=== PATIENT | male | born 1935 | race Caucasian/White ===

== ENCOUNTER 2016-10-07 19:20 | Inpatient (IN) | payer OTHER ==
--- NOTE | 2016-10-07 19:39 | EDPHY ---
H & P Time Seen by Provider: 10/07/16 19:26 HPI/ROS: CHIEF COMPLAINT: General weakness for 4 months HISTORY OF PRESENT ILLNESS: Patient has been weak for the last for 5 months and per daughter and has basically not gotten out of bed during that entire time. Weakness is generalized and the essentially can't care for him any more at home. Weakness severe, nonfocal. A little bit worse in the legs. Not associated with fever chills or headache or any recent fall injury or trauma. Normal oral intake. REVIEW OF SYSTEMS: Eye: no change in vision ENT: no sore throat, feels "congested" Cardiac: no chest pain or syncope Pulmonary: no cough or SOB Abdomen: no vomiting, diarrhea, abdominal pain Musculoskeletal: Bilateral leg swelling. Skin: no rash Neuro: no headache Constitutional: no fever : no urinary symptoms Patient's own notes document taking a significant amount of acetaminophen. A comprehensive 10 point review of systems is otherwise negative aside from elements mentioned in the history of present illness. PAST MEDICAL HISTORY: Discharge summary dated 07/01/2015 personally reviewed. Includes left inguinal hernia, Parkinson's, atrial fibrillation with biventricular pacemaker, coronary artery disease with stenting in April of 2015 , hypertension, gout, peripheral neuropathy, prostate cancer. Social history: Occasional alcohol with cognac recently, nonsmoker. Here with daughter and . General Appearance: Alert and conversant, cooperative. Eyes: No scleral icterus. ENT, Mouth: Slightly dry mucous membranes. Respiratory: Basilar crackles but normal respiratory effort and no wheezing or rhonchi. Cardiovascular: Distant heart sounds, irregular without murmur. Gastrointestinal: Abdomen is soft and non tender. Neurological: Alert and oriented x3. Normally conversant. Able to wiggle his toes but can't lift either leg off the bed. Can't sit up in the bed without assistance. Skin: Warm and dry, no rashes. Musculoskeletal: 3+ bilateral peripheral edema. Psychiatric: Not agitated. Emergency Department course/MDM: Patient needs admission for severe debility. Plan labs and x-ray and EKG. May benefit from palliative Care consult. 195: Chest x-ray reviewed shows left lower lung consolidation and effusion which is similar but more extensive than 16 months prior. He does not have signs or symptoms of pulmonary infection here in the emergency department. Smoking Status: Former smoker Constitutional: Initial Vital Signs Temperature (C) 36.7 C 10/07/16 19:31 Heart Rate 79 10/07/16 19:31 Respiratory Rate 18 10/07/16 19:31 Blood Pressure 172/115 H 10/07/16 19:31 O2 Sat (%) 92 10/07/16 19:31 O2 Delivery Mode Room Air O2 (L/minute) 2 Allergies/Adverse Reactions: No Known Allergies Allergy (Verified 10/07/16 19:36) Home Medications: Medication Instructions Recorded Carbidopa/Levodopa 25/100Mg 4 tab PO TID 11/17/14 [Sinemet 25/100 MG (*)] Levothyroxine [Synthroid 75 mcg 75 mcg PO DAILY06 11/17/14 (*)] Docusate Sodium [Stool Softener] 50 mg PO TID PRN 06/22/15 Apixaban [Eliquis] 5 mg PO BID #60 tab 07/01/15 Acetaminophen [Tylenol ES 500 mg 500 mg PO Q6 PRN 10/07/16 (*)] Sennosides [Senna Lax] 8.6 mg PO PRN PRN 10/07/16 Vortioxetine Hydrobromide 10 mg PO DAILY 10/07/16 [Brintellix] Medical Decision Making - Diagnostics EKG Interpretation: 12-lead EKG interpreted by me; official reading is in trace master. My interpretation is ventricular pacing rate 82. Differential Diagnosis: Differential diagnosis considered for weakness including but not limited to coronary disease, electrolyte abnormality, depression, anxiety, CVA, spinal cord abnormality, and infectious causes. Consult/Admit Bed Type: [place] [id number] - Data Points Laboratory Results: Laboratory Results 10/07/16 19:30 10/07/16 19:30 10/07/16 10/07/16 10/07/16 19:30 19:30 19:30 WBC 5.93 10^3/uL 10^3/uL (3.80-9.50) RBC 4.36 10^6/uL L 10^6/uL (4.40-6.38) Hgb 15.3 g/dL g/dL (13.7-17.5) Hct 45.5 % % (40.0-51.0) MCV 104.4 fL H fL (81.5-99.8) MCH 35.1 pg H pg (27.9-34.1) MCHC 33.6 g/dL g/dL (32.4-36.7) RDW 16.5 % H % (11.5-15.2) Plt Count 165 10^3/uL 10^3/uL (150-400) MPV 10.9 fL fL (8.7-11.7) Neut % (Auto) 85.2 % H % (39.3-74.2) Lymph % (Auto) 6.7 % L % (15.0-45.0) Wetzel % (Auto) 7.1 % % (4.5-13.0) Eos % (Auto) 0.3 % L % (0.6-7.6) Baso % (Auto) 0.2 % L % (0.3-1.7) Nucleat RBC Rel Count 0.0 % % (0.0-0.2) Absolute Neuts (auto) 5.05 10^3/uL 10^3/uL (1.70-6.50) Absolute Lymphs (auto) 0.40 10^3/uL L 10^3/uL (1.00-3.00) Absolute Monos (auto) 0.42 10^3/uL 10^3/uL (0.30-0.80) Absolute Eos (auto) 0.02 10^3/uL L 10^3/uL (0.03-0.40) Absolute Basos (auto) 0.01 10^3/uL L 10^3/uL (0.02-0.10) Absolute Nucleated RBC 0.00 10^3/uL 10^3/uL (0-0.01) Immature Gran % 0.5 % % (0.0-1.1) Immature Gran # 0.03 10^3/uL 10^3/uL (0.00-0.10) PT 14.9 SEC SEC (12.0-15.0) INR 1.17 H (0.83-1.16) APTT 28.1 SEC SEC (23.0-38.0) Sodium 143 mEq/L mEq/L (134-144) Potassium 4.1 mEq/L mEq/L (3.5-5.2) Chloride 104 mEq/L mEq/L (97-110) Carbon Dioxide 24 mEq/l mEq/l (22-31) Anion Gap 15 mEq/L mEq/L (8-16) BUN 29 mg/dL H mg/dL (7-23) Creatinine 0.9 mg/dL mg/dL (0.7-1.3) Estimated GFR > 60 Glucose 132 mg/dL H mg/dL (70-100) Calcium 9.5 mg/dL mg/dL (8.5-10.4) Total Bilirubin 1.3 mg/dL mg/dL (0.1-1.4) Conjugated Bilirubin 0.4 mg/dL mg/dL (0.0-0.5) Unconjugated Bilirubin 0.9 mg/dL mg/dL (0.0-1.1) AST 27 IU/L IU/L (17-59) ALT 22 IU/L IU/L (21-72) Alkaline Phosphatase 114 IU/L IU/L (38-126) Troponin I 0.020 ng/mL ng/mL (0.000-0.034) Total Protein 6.5 g/dL g/dL (6.3-8.2) Albumin 3.9 g/dL g/dL (3.5-5.0) TSH 6.560 uIU/mL H uIU/mL (0.465-4.680) Acetaminophen < 10 mcg/mL L mcg/mL (10-30) Departure - Departure Disposition: [facility] Inpatient Acute Clinical Impression: Weakness, left lung consolidation Condition: Fair
--- NOTE | 2016-10-07 19:42 | CPEKG ---
Heart Rate: 82 RR Interval: 732 QRSD Interval: 138 QT Interval: 428 QTC Interval: 500 P [place]: 0 QRS [place]: -27 T Wave [place]: 168 EKG Severity - ABNORMAL ECG - EKG Impression: VENTRICULAR-PACED COMPLEXES EKG Impression: NONSPECIFIC INTRAVENTRICULAR CONDUCTION DELAY EKG Impression: PROBABLE LVH WITH SECONDARY REPOL ABNRM Electronically Signed By: Roel Garrison 07-Oct-2016 19:53:23
[2016-10-07 19:51] LABS: % IMMATURE GRANULYOCYTES 0.5 % (0.0-1.1); ABSOLUTE IMMATURE GRANULOCYTES 0.03 10^3/uL (0.00-0.10); ADD DIFF? NO; ADD MORPH? NO; ADD SCAN? NO; ATYPICAL LYMPHOCYTE FLAG 0 (0-99); FRAGMENT RBC FLAG 0 (0-99); HEMATOCRIT 45.5 % (40.0-51.0); HEMOGLOBIN 15.3 g/dL (13.7-17.5); LEFT SHIFT FLG 0 (0-99); LIPEMIA HEMOLYSIS FLAG 80 (0-99); MEAN CELL HEMOGLOBIN 35.1 pg (27.9-34.1); MEAN CELL HEMOGLOBIN CONCENTR. 33.6 g/dL (32.4-36.7); MEAN CELL VOLUME 104.4 fL (81.5-99.8); MEAN PLATELET VOLUME 10.9 fL (8.7-11.7); PLATELET CLUMPS FLAG 0 (0-99); PLATELET COUNT 165 10^3/uL (150-400); RED BLOOD CELL COUNT 4.36 10^6/uL (4.40-6.38); RED CELL DISTRIBUTION WIDTH 16.5 % (11.5-15.2)
[2016-10-07 19:55] LABS: INR 1.17 (0.83-1.16); PROTIME(PATIENT) 14.9 SEC (12.0-15.0)
[2016-10-07 19:56] LABS: APTT 28.1 SEC (23.0-38.0)
[2016-10-07 20:00] LABS: ALANINE AMINOTRANSFERASE 22 IU/L (21-72); ALBUMIN 3.9 g/dL (3.5-5.0); ALKALINE PHOSPHATASE 114 IU/L (38-126); ANION GAP 15 mEq/L (8-16); ASPARTATE AMINOTRANSFERASE 27 IU/L (17-59); BILIRUBIN,TOTAL 1.3 mg/dL (0.1-1.4); BILIRUBIN-CONJUGATED 0.4 mg/dL (0.0-0.5); BILIRUBIN-UNCONJUGATED 0.9 mg/dL (0.0-1.1); CALCIUM 9.5 mg/dL (8.5-10.4); CARBON DIOXIDE 24 mEq/l (22-31); CHLORIDE 104 mEq/L (97-110); CREATININE 0.9 mg/dL (0.7-1.3); GLOMERULAR FILTRATION RATE > 60; GLUCOSE 132 mg/dL (70-100); POTASSIUM 4.1 mEq/L (3.5-5.2); SODIUM 143 mEq/L (134-144); TOTAL PROTEIN 6.5 g/dL (6.3-8.2)
[2016-10-07 21:32] LABS: COLOR AMBER; LEUKOCYTE ESTERASE,URINE NEGATIVE (NEGATIVE); NITRITE,URINE NEGATIVE (NEGATIVE)
[2016-10-07 21:50] LABS: MUCUS 4+ /lpf (NONE-1+); RBC,URINE 25-50 /hpf (0-3)
[2016-10-07 21:51] LABS: HYALINE CASTS >182 /lpf (0-1)
[2016-10-07] MEDS ORDERED: SENNOSIDES 1 TAB PO PRN (23:03)
[2016-10-07] MEDS ORDERED: DOCUSATE SODIUM 100 MG CAP PO PRN (23:03)
[2016-10-07] MEDS: CARBIDOPA/LEVODOPA 25 MG/100 MG TAB PO SCH (23:26)
[2016-10-07] MEDS ORDERED: ONDANSETRON DISINTEGRATING 4 MG TAB PO PRN (23:57)
[2016-10-07] MEDS ORDERED: ONDANSETRON 4 MG/2 ML VIAL IVP PRN (23:57)
--- NOTE | 2016-10-08 01:16 | GHP ---
[f rep st] HISTORY AND PHYSICAL DATE OF ADMISSION: 10/07/2016 CHIEF COMPLAINT: Progressive weakness. HISTORY OF PRESENT ILLNESS: This is an 81-year-old male with a history of an extensive cardiac hist ory. He also has a history of progressive Parkinson. Over the last several months, his weakness cuevas s worsened. He is essentially bed bound most of the time. Patient had some worsening lower extremi ty edema over the last several months as well. Patient initially states that he is done, and he wants to pursue palliative care or even physician a ssisted suicide because his quality of his life is poor. REVIEW OF SYSTEMS: A 10-point review of systems was obtained and was negative. PAST MEDICAL HISTORY: 1. Parkinson. 2. History of sick sinus syndrome status post pacemaker. 3. History of coronary artery disease. 4. Paroxysmal atrial fibrillation. 5. Prostate cancer. 6. Hyperlipidemia. 7. Hypertension. 8. Obstructive sleep apnea. 9. Depression. MEDICATIONS: Reviewed. SOCIAL HISTORY: Moderate alcohol. No tobacco. FAMILY HISTORY: Both parents are . PHYSICAL EXAMINATION: VITAL SIGNS: Afebrile, blood pressure is 159/110, heart rate 73, oxygen satu ration 96% on 2 L. GENERAL: The patient is well developed, no apparent distress, but chronically ill appearing. HEENT: Anicteric sclerae. Extraocular muscles intact. Moist mucous membranes. NECK: Supple. No thyromegaly. LUNGS: Good effort. Clear to auscultation bilaterally. CARDIOVASCULAR: Regular rate and rhythm. No murmurs, gallops. ABDOMEN: Positive bowel sounds. Soft, nontender, nondistended. Positive megaly. EXTREMITIES: 3+ edema. NEUROLOGIC: Alert and oriented x3. PSYCH: Normal mood and affect. LABORATORY DATA: CBC is essentially normal. MCV is elevated. Chemistries normal. TSH is a little bit high at 6.5. UA did not show urinary tract infection. EKG personally reviewed and interpreted . Paced rhythm. Chest x-ray, I personally reviewed and interpreted, shows a chronic left-sided ple ural effusion, which is still with left lower lobe consolidation. ASSESSMENT: This is an 81-year-old male with Parkinson disease, apparently he is considering end of life options. PLAN: 1. Parkinson. Will continue Sinemet. Will have Palliative Care see the patient to discuss options . 2. Lower extremity edema is probably due to combination of his cardiac history and venous insuffici ency. Will start a little bit of Lasix tomorrow for symptomatic control. 3. History of coronary artery disease. 4. History of atrial fibrillation. Is on anticoagulation. 5. Patient is a DNR. /[id number]/MODL
[2016-10-08] MEDS: LORazepam 0.5 MG TAB PO PRN (02:01)
[2016-10-08] MEDS: LEVOTHYROXINE 75 MCG TAB PO SCH (05:52)
--- NOTE | 2016-10-08 08:43 | HOSPPROG ---
Hospitalist Progress Note Assessment/Plan: #FTT -his goals align with hospice care. Met with Palliative care. He wants to pursue [id number]-[id number]. Explained that this will have to be pursued outpt with PCP -hospice to evaluate to treat at home #MDD: managed by PCP. On Trintellex. He denies SI/HI. Motor dysfunction with Parkinson's has significantly driven his depression. 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 Start low-dose Ritalin #Parkinson's disease: Sinemet #Decompensated cardiomyopathy/systolic HF: cont IV Lasix, I/Os #Accelerated HTN: improved this morning. add antihypertensive if needed #CAD: stent to PD 2015. Not on statin due to side effects #Hypothyroidism: LT4. TSH 6; query compliance with LT4 #Parkinson's disease: followed by Dr. Fermin. #Paroxysmal atrial fibrillation: pacer. Eliquis #Diet: regular #DVT ppx: Eliquis #Disp: warrants inpt admission with IV diuresis, hospice evaluation Time spent on visit: 45 min bedside with patient discussing goals, treatments. At this point he does not want any surgical interventions and would cont meds for comfort Subjective: no chest pain or SOB Objective: Vital Signs Temp Pulse Resp BP Pulse Ox 36.4 C 73 22 H 152/95 H 95 10/07/16 22:54 10/07/16 22:54 10/08/16 06:10 10/08/16 06:10 10/08/16 06:10 10/07/16 10/08/16 10/09/16 05:59 05:59 05:59 Intake Total 240 Balance 240 PT 14.9 SEC (12.0-15.0) 10/07/16 19:30 INR 1.17 (0.83-1.16) H 10/07/16 19:30 ICD10 Worksheet Patient Problems: Problems Problem Status Onset Weakness Acute Abdominal pain Acute Chest pain Acute Coronary artery disease Acute History of coronary artery disease Acute Pacemaker Acute Post PTCA Acute
[2016-10-08] MEDS: FUROSEMIDE 20 MG/2 ML VIAL IVP SCH (09:43)
[2016-10-08] MEDS: APIXABAN 5 MG TAB PO SCH ×2 (09:43→21:15)
[2016-10-08] MEDS: CARBIDOPA/LEVODOPA 25 MG/100 MG TAB PO SCH ×3 (09:44→21:15)
--- NOTE | 2016-10-08 14:25 | PDPCPN ---
Palliative Care Progress Note Assessment/Plan: Referring provider: Dr gould Reason for consult: Complex medical decision making Symptom control HPI: Piero Chahal is a 81 yo male with PMH parkinson's, CAD, SSS s/p pacemaker, a fib, prostate CA, HTN, and depression admitted to the hospital for failure to thrive, increased weakness. Found to have some lower leg edema with decompensated CHF. started on iv lasix. Does not want life prolonging treatment and is interested in the right to act. Palliative care consulted for complex medical decision making. Met with Piero at his bedside along with Jackie and daughter Lu over the phone. They shared how up until 04/2015 Piero was a very active person who was always well respected and "in charge". 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 He was very sick the past 1.5 years being in and out of the hospital. The family feels he has lost all of his motivation for living and has "given up". They feel he is clinically depressed and has been started on antidepressants from his PCP but they have not contributed to any improvement yet. Piero states he feels he has no quality of life since he became very sick last year. He is always dizzy and describes and constant discomfort in his chest. He uses tylenol at home with relief for the discomfort. Benzos have made this worse for him historically in the past. He feels because his quality of life is so poor he does not want to continue with life prolonging measures. His family certainly supports his wishes and goals and acknowledges he is not the same person he was his entire life but they also feel if he were feeling better his mood and decisions might change. We talked about options including the right to act which we discussed would like happen as an outpt with his PCP and will probably require a psychiatrist visit to determine if this is an option for him or not. Piero says his mood does change depending on the day but today "if there were a light switch I would just turn it off". We discussed having hospice as a way to support his current goals of just wanting comfort without life prolonging measures. His family agrees with the plan and is hoping with better symptom control his quality of life will be better. Assessment: Physical: - Pain: discomfort - uses tylenol PRN at home - Dyspnea: at times appears dyspneic - oxygen as needed - a fan can also help wtih subjective dyspnea - might consider roxanol in very small dose 2mg PO Q2hr PRN if severe - Dizziness - try to avoid benzos as can make this worse - fall precautions - constipation - on bowel protocol with senna and colace Emotional/psychological: Depression: - start ritalin 5mg daily to see if this helps with mood as well as energy level Advanced Care Planning: Is patient decisional?: Yes Code Status: DNR MD POA: unsure who is MDPOA. Plan: Meet with hospice for home hospice. Has a shelter care policy which includes private duty caregivers or LTC nursing facility. CM working with family on adding more support at home. 10/08/16 14:27 Subjective: I'm feeling very tired today Objective: Social History: to Jackie for 58 years. 1 daughter Lu involved. Retired salesman. Enjoys writing and "tinkering" Medication list reviewed ROS: General: fatigue, weakness, weight loss ENT: negative Resp: dyspnea GI: poor appetite : negative MS: chest discomfort Skin: negative Neuro: negative Psych: depression Functional assessment: PPS: 30% Functional status: dependent on ADLs, IADLs Vital Signs Temp Pulse Resp BP Pulse Ox 36.8 C 75 15 130/88 H 96 10/08/16 11:14 10/08/16 11:14 10/08/16 11:14 10/08/16 11:14 10/08/16 11:14 10/07/16 10/08/16 10/09/16 05:59 05:59 05:59 Intake Total 240 Output Total 425 Balance 240 -425 PT 14.9 SEC (12.0-15.0) 10/07/16 19:30 INR 1.17 (0.83-1.16) H 10/07/16 19:30 Physical Exam - Physical Exam General Appearance: alert, no apparent distress Respiratory: No respiratory distress, No accessory muscle use Skin: normal color, warm/dry Extremities: pedal edema Neuro/Psych: alert, oriented x 3 ICD10 Worksheet Patient Problems: Problems Problem Status Onset Palliative care encounter Acute Weakness Acute Abdominal pain Acute Chest pain Acute Coronary artery disease Acute History of coronary artery disease Acute Pacemaker Acute Post PTCA Acute - ICD10 Problem Qualifiers (1) Palliative care encounter
[2016-10-09 05:30] LABS: ANION GAP 8 mEq/L (8-16); CALCIUM 8.8 mg/dL (8.5-10.4); CARBON DIOXIDE 26 mEq/l (22-31); CHLORIDE 105 mEq/L (97-110); CREATININE 0.7 mg/dL (0.7-1.3); GLOMERULAR FILTRATION RATE > 60; GLUCOSE 98 mg/dL (70-100); POTASSIUM 4.3 mEq/L (3.5-5.2); SODIUM 139 mEq/L (134-144)
[2016-10-09] MEDS: LEVOTHYROXINE 75 MCG TAB PO SCH (05:49)
--- NOTE | 2016-10-09 08:53 | ASMTCMCOM ---
CM Note CM Note Notes: This note is from 10/08. Pt admitted w/weakness, has hx of parkinsons. Pt lives at home w/ Racquel kearney who cares for him.Had palliative care consult today with pt and , Jackie and dtr, Lu (please see palliative note).Pt and family would like to meet w/Hopsice as they are hoping to treat some of his symptoms and improve his quality of life. Discussed options for Hospice as well as private d uty caregivers. Their wish is to take him home. Jackie will look into agencies and LT insurance and get back to CM and then we can arrange Ho myriam consult. HORACE w/f. Date Signed: 10/09/2016 08:53 AM Electronically Signed By:Inessa Rosario
[2016-10-09] MEDS: FUROSEMIDE 20 MG/2 ML VIAL IVP SCH ×3 (09:11→16:38)
[2016-10-09] MEDS: CARBIDOPA/LEVODOPA 25 MG/100 MG TAB PO SCH ×3 (10:15→21:22)
[2016-10-09] MEDS: APIXABAN 5 MG TAB PO SCH ×2 (10:16→21:22)
--- NOTE | 2016-10-09 13:41 | HOSPPROG ---
Hospitalist Progress Note Assessment/Plan: #FTT -his goals align with hospice care. Met with Palliative care. He wants to pursue [id number]. Explained that this will have to be pursued outpt with PCP -hospice to evaluate today #MDD: more energy today with Ritlalin. Cont Trintellex. He denies SI/HI. #Parkinson's disease: Sinemet #Decompensated cardiomyopathy/systolic HF: cont IV Lasix, I/Os. Does not want additional tests or procedures like TTE, etc. Add Lisinopril 2.5mg #Accelerated HTN: add Lisinopril #CAD: stent to PD 2015. Not on statin due to side effects #Hypothyroidism: LT4. TSH 6; query compliance with LT4 #Parkinson's disease: followed by Dr. Fermin. #Paroxysmal atrial fibrillation: pacer. Eliquis #Diet: regular #DVT ppx: Eliquis #Disp: warrants inpt admission with IV diuresis, hospice evaluation Time spent on visit: 35 min bedside with patient discussing goals, treatments. At this point he does not want any surgical interventions and would cont meds for comfort Subjective: has a bit more energy today per Objective: Vital Signs Temp Pulse Resp BP Pulse Ox 36.4 C 67 20 146/92 H 97 10/09/16 10:06 10/09/16 10:06 10/09/16 10:06 10/09/16 10:06 10/09/16 10:06 Laboratory Results 10/09/16 04:56 10/08/16 10/09/16 10/10/16 05:59 05:59 05:59 Intake Total 240 710 Output Total 825 220 Balance 240 -115 -220 PT 14.9 SEC (12.0-15.0) 10/07/16 19:30 INR 1.17 (0.83-1.16) H 10/07/16 19:30 - Physical Exam Constitutional: chronically ill appearing Eyes: PERRL Ears, Nose, Mouth, Throat: dry mucous membranes Cardiovascular: regular rate and rhythym, no murmur, rub, or gallop, edema (+2 leg edema) Respiratory: reduced air movement, No inspiratory crackles Gastrointestinal: normoactive bowel sounds, soft, non-tender abdomen Genitourinary: no bladder fullness Skin: warm Neurologic: AAOx3, CN II-XII Intact Psychiatric: depressed, flat affect ICD10 Worksheet Patient Problems: Problems Problem Status Onset Palliative care encounter Acute Weakness Acute Abdominal pain Acute Chest pain Acute Coronary artery disease Acute History of coronary artery disease Acute Pacemaker Acute Post PTCA Acute
--- NOTE | 2016-10-09 15:56 | ASMTCMCOM ---
CM Note CM Note Notes: Pt's chose [facility]. Faxed referral to [facility]. They will meet with pt and at 9AM tomorrow. Date Signed: 10/09/2016 03:55 PM Electronically Signed By:Inessa Rosario
[2016-10-09] MEDS: ACETAMINOPHEN 325 MG TAB PO PRN (16:45)
[2016-10-10] MEDS: LEVOTHYROXINE 75 MCG TAB PO SCH (04:14)
[2016-10-10 05:04] LABS: ANION GAP 9 mEq/L (8-16); CALCIUM 8.7 mg/dL (8.5-10.4); CARBON DIOXIDE 29 mEq/l (22-31); CHLORIDE 102 mEq/L (97-110); CREATININE 0.7 mg/dL (0.7-1.3); GLOMERULAR FILTRATION RATE > 60; GLUCOSE 82 mg/dL (70-100); POTASSIUM 3.9 mEq/L (3.5-5.2); SODIUM 140 mEq/L (134-144)
[2016-10-10] MEDS: ACETAMINOPHEN 325 MG TAB PO PRN ×2 (06:37→13:33)
[2016-10-10] MEDS ORDERED: LISINOPRIL 2.5 MG TAB PO SCH (09:00)
--- NOTE | 2016-10-10 11:30 | HOSPPROG ---
Hospitalist Progress Note Assessment/Plan: #FTT -He wants to pursue [id number]-[id number]. Explained that this will have to be pursued outpt with PCP and not likely given depressed state -home with [facility] on once staffing/equipment available #MDD: more energy today with Ritlalin. Cont Trintellex. He denies SI/HI. #Parkinson's disease: Sinemet #Decompensated cardiomyopathy/systolic HF: change Lasix to PO to find proper home dose, I/Os. Does not want additional tests or procedures like TTE, etc. #Accelerated HTN: stable. add ACEI #CAD: stent to PD 2015. Not on statin due to side effects #Hypothyroidism: LT4. TSH 6; query compliance with LT4 #Parkinson's disease: followed by Dr. Fermin. #Paroxysmal atrial fibrillation: pacer. Eliquis #Diet: regular #DVT ppx: Eliquis #Disp: warrants inpt admission for diuresis. Plan for home with hospice when equipment/staff available from [facility] Subjective: no SOB or chest pain Objective: Vital Signs Temp Pulse Resp BP Pulse Ox 36.7 C 65 16 137/89 H 97 10/10/16 07:41 10/10/16 07:41 10/10/16 07:41 10/10/16 07:41 10/10/16 07:41 Laboratory Results 10/10/16 04:39 10/09/16 10/10/16 10/11/16 05:59 05:59 05:59 Intake Total 710 1300 Output Total 825 1325 Balance -115 -25 PT 14.9 SEC (12.0-15.0) 10/07/16 19:30 INR 1.17 (0.83-1.16) H 10/07/16 19:30 - Time Spent With Patient Time Spent with Patient: greater than 35 minutes Time Spent with Patient: Greater than 35 minutes spent on this patients care, greater than 50% of time spent counseling, educating, and coordinating care regarding the above mentioned plan. - Physical Exam Constitutional: chronically ill appearing Eyes: PERRL Ears, Nose, Mouth, Throat: dry mucous membranes Cardiovascular: regular rate and rhythym, edema (+2 LE edema) Respiratory: no respiratory distress, No no rales or rhonchi Gastrointestinal: normoactive bowel sounds, soft, non-tender abdomen Genitourinary: no bladder fullness Skin: warm Musculoskeletal: generalized weakness Neurologic: CN II-XII Intact Psychiatric: depressed, flat affect ICD10 Worksheet Patient Problems: Problems Problem Status Onset Palliative care encounter Acute Weakness Acute Abdominal pain Acute Chest pain Acute Coronary artery disease Acute History of coronary artery disease Acute Pacemaker Acute Post PTCA Acute
[2016-10-10] MEDS: APIXABAN 5 MG TAB PO SCH ×2 (11:44→21:51)
[2016-10-10] MEDS: FUROSEMIDE 40 MG TAB PO SCH ×2 (11:44→18:11)
[2016-10-10] MEDS: LISINOPRIL 2.5 MG TAB PO SCH (11:44)
[2016-10-10] MEDS: CARBIDOPA/LEVODOPA 25 MG/100 MG TAB PO SCH ×3 (11:46→21:51)
--- NOTE | 2016-10-10 13:48 | ASMTCMCOM ---
CM Note CM Note Notes: [facility] here this morning to assess patient for in home Hospice services. Saba RN said pt is not currently care center appropriate but wants to be notified if there is any change in patients status between now and Thursday10/14/2016 when he will discharge home with [facility]. Saba said they would prefer that transport be set up for 12 noon with a 1300 meet with [facility] at their home. Patients spouse also wanting to hire unskilled nursing support for home. C/NM will continue to follow. Date Signed: 10/10/2016 01:48 PM Electronically Signed By:Idalmis Guadalupe
[2016-10-10] MEDS: FUROSEMIDE 20 MG/2 ML VIAL IVP SCH (17:02)
[2016-10-11] MEDS: ACETAMINOPHEN 325 MG TAB PO PRN ×2 (05:34→13:36)
[2016-10-11] MEDS: LEVOTHYROXINE 75 MCG TAB PO SCH (05:34)
[2016-10-11] MEDS: FUROSEMIDE 40 MG TAB PO SCH ×2 (09:03→14:31)
[2016-10-11] MEDS: LISINOPRIL 2.5 MG TAB PO SCH (09:03)
[2016-10-11] MEDS: APIXABAN 5 MG TAB PO SCH ×3 (09:03→22:09)
[2016-10-11] MEDS: CARBIDOPA/LEVODOPA 25 MG/100 MG TAB PO SCH ×3 (09:06→22:09)
[2016-10-11] MEDS ORDERED: (Vortioxetine Hydrobromide [Trintellix] 20 MG) PO SCH (10:45)
[2016-10-11] MEDS: (Vortioxetine Hydrobromide [Trintellix] 20 MG) PO SCH (12:01)
--- NOTE | 2016-10-11 14:43 | HOSPPROG ---
Hospitalist Progress Note Assessment/Plan: # FTT -He wants to pursue [id number]. Explained that this will have to be pursued outpt with PCP and not likely given depressed state -home with [facility] on once staffing/equipment available # MDD: more energy today with Ritlalin. Cont Trintellex. He denies SI/HI. # Parkinson's disease- Sinemet at home dosing # Decompensated cardiomyopathy- acute systolic HF- CXR (personally reviewed and interpreted) left-sided effusion and pulmonary edema Oxygen saturations 95% on 3 L - continue PO Lasix - Does not want additional tests or procedures like TTE, etc. # Accelerated HTN: stable. add ACEI # CAD: stent to PD 2015. Not on statin due to side effects # Hypothyroidism: LT4. TSH 6; query compliance with LT4 # Parkinson's disease: followed by Dr. Fermin. # Paroxysmal atrial fibrillation: pacer. Eliquis #Diet: regular #DVT ppx: Eliquis #Disp: warrants inpt admission for diuresis- Plan for home with hospice when equipment/staff available from [facility] Have discussed the case with case management planning for disposition to hospice early next week Subjective: No complaints Objective: Vital Signs Temp Pulse Resp BP Pulse Ox 36.5 C 80 18 121/76 H 95 10/11/16 08:00 10/11/16 13:38 10/11/16 13:38 10/11/16 13:38 10/11/16 13:38 Laboratory Results 10/10/16 04:39 10/10/16 10/11/16 10/12/16 05:59 05:59 05:59 Intake Total 1300 337 Output Total 1325 1050 903 Balance -25 -713 -475 PT 14.9 SEC (12.0-15.0) 10/07/16 19:30 INR 1.17 (0.83-1.16) H 10/07/16 19:30 - Physical Exam Constitutional: chronically ill appearing Eyes: anicteric sclera Ears, Nose, Mouth, Throat: moist mucous membranes Cardiovascular: regular rate and rhythym, systolic murmur, edema Respiratory: no respiratory distress, No expiratory wheeze, No inspiratory crackles Gastrointestinal: normoactive bowel sounds Genitourinary: No lu in urethra Skin: warm Musculoskeletal: No asymmetric calves Neurologic: AAOx3 Psychiatric: interacting appropriately Lymph, Heme, Immunologic: no cervical LAD ICD10 Worksheet Patient Problems: Problems Problem Status Onset Palliative care encounter Acute Weakness Acute Abdominal pain Acute Chest pain Acute Coronary artery disease Acute History of coronary artery disease Acute Pacemaker Acute Post PTCA Acute
[2016-10-11] MEDS: LORazepam 0.5 MG TAB PO PRN (22:09)
[2016-10-12] MEDS: LEVOTHYROXINE 75 MCG TAB PO SCH (04:43)
[2016-10-12] MEDS: APIXABAN 5 MG TAB PO SCH ×2 (08:55→20:13)
[2016-10-12] MEDS: (Vortioxetine Hydrobromide [Trintellix] 20 MG) PO SCH (08:56)
[2016-10-12] MEDS: FUROSEMIDE 40 MG TAB PO SCH ×2 (08:56→14:42)
[2016-10-12] MEDS: LISINOPRIL 2.5 MG TAB PO SCH (08:56)
[2016-10-12] MEDS: CARBIDOPA/LEVODOPA 25 MG/100 MG TAB PO SCH ×2 (08:57→16:09)
[2016-10-12] MEDS: ACETAMINOPHEN 325 MG TAB PO PRN (14:41)
--- NOTE | 2016-10-12 15:06 | HOSPPROG ---
Hospitalist Progress Note Assessment/Plan: # FTT-He wants to pursue [id number]. Explained that this will have to be pursued outpt with PCP and not likely given depressed state -home with [facility] on once staffing/equipment available # MDD: more energy today with Ritalin. Cont Trintellex. He denies SI/HI. # Parkinson's disease- Sinemet at home dosing # Decompensated cardiomyopathy- acute systolic HF- CXR - left-sided effusion and pulmonary edema Oxygen saturations 95% on 3 L - continue PO Lasix - creatinine 0.8 - Does not want additional tests or procedures like TTE, etc. # Accelerated HTN: stable - continue ACEI # CAD: stent to PD 2015. Not on statin due to side effects- EKG (personally reviewed and interpreted) V- paced no acute changes - cont home meds # Hypothyroidism: LT4. TSH 6; query compliance with LT4 # Paroxysmal atrial fibrillation: pacer. Eliquis #Diet: regular #DVT ppx: Eliquis #Disp: warrants inpt admission for diuresis- Plan for home with hospice when equipment/staff available from [facility] Have discussed the case with CM - anticipate home hospice dc early next week Subjective: tired Objective: Vital Signs Temp Pulse Resp BP Pulse Ox 36.6 C 73 15 132/88 H 95 10/12/16 08:00 10/12/16 08:00 10/12/16 08:00 10/12/16 08:00 10/12/16 08:00 Laboratory Results 10/10/16 04:39 10/11/16 10/12/16 10/13/16 05:59 05:59 05:59 Intake Total 337 300 600 Output Total 1050 1976 910 Balance -713 -1676 -310 PT 14.9 SEC (12.0-15.0) 10/07/16 19:30 INR 1.17 (0.83-1.16) H 10/07/16 19:30 - Physical Exam Constitutional: cachectic Eyes: anicteric sclera Ears, Nose, Mouth, Throat: dry mucous membranes Cardiovascular: irregularly irregular, edema Respiratory: no respiratory distress Gastrointestinal: normoactive bowel sounds Genitourinary: no bladder fullness Skin: warm Musculoskeletal: No asymmetric calves Neurologic: No AAOx3 Psychiatric: depressed Lymph, Heme, Immunologic: no cervical LAD ICD10 Worksheet Patient Problems: Problems Problem Status Onset Palliative care encounter Acute Weakness Acute Abdominal pain Acute Chest pain Acute Coronary artery disease Acute History of coronary artery disease Acute Pacemaker Acute Post PTCA Acute
[2016-10-12] MEDS: LORazepam 0.5 MG TAB PO PRN (20:13)
[2016-10-13] MEDS: CARBIDOPA/LEVODOPA 25 MG/100 MG TAB PO SCH ×4 (00:03→22:49)
[2016-10-13] MEDS: LEVOTHYROXINE 75 MCG TAB PO SCH (03:11)
[2016-10-13] MEDS: (Vortioxetine Hydrobromide [Trintellix] 20 MG) PO SCH (10:14)
[2016-10-13] MEDS: FUROSEMIDE 40 MG TAB PO SCH ×2 (10:14→15:55)
[2016-10-13] MEDS: APIXABAN 5 MG TAB PO SCH ×2 (10:14→19:48)
[2016-10-13] MEDS: LISINOPRIL 2.5 MG TAB PO SCH (10:14)
--- NOTE | 2016-10-13 14:15 | HOSPPROG ---
Hospitalist Progress Note Assessment/Plan: # FTT-He wants to pursue [id number]. Explained that this will have to be pursued outpt with PCP and not likely given depressed state -home with [facility] on once staffing/equipment available # MDD- mood low on exam today - reports being tired and only so so- He denies SI /HI. - cont Ritalin. - Cont Trintellex. # Parkinson's disease- cont Sinemet at home dosing # Decompensated cardiomyopathy- Acute systolic HF- CXR (personally reviewed and interpreted) - left-sided effusion and pulmonary edema laying fla tin bed appears - comfortable Oxygen saturations 100% on 3 L - continue PO Lasix BID - creatinine 0.8 - Does not want additional tests or procedures like TTE, etc. # Accelerated HTN: stable - continue ACEI # CAD: stent to PD 2015. Not on statin due to side effects- EKG (personally reviewed and interpreted) V- paced no acute changes - cont home meds # Hypothyroidism: LT4. TSH 6; query compliance with LT4 # Paroxysmal atrial fibrillation: pacer. Eliquis #Diet: regular- not eating much #DVT ppx: Eliquis #Disp: warrants inpt admission for diuresis- Plan for home with hospice when equipment/staff available from [facility] Have discussed the case with RN - encouraging high calorie foods for snacks Subjective: slept overnight - pain is stable Objective: Vital Signs Temp Pulse Resp BP Pulse Ox 36.4 C 57 L 20 149/98 H 100 10/13/16 10:00 10/13/16 10:00 10/13/16 10:00 10/13/16 10:14 10/13/16 10:00 Laboratory Results 10/10/16 04:39 10/12/16 10/13/16 10/14/16 05:59 05:59 05:59 Intake Total 300 1250 260 Output Total 1976 1340 1350 Balance -1676 -90 -1090 PT 14.9 SEC (12.0-15.0) 10/07/16 19:30 INR 1.17 (0.83-1.16) H 10/07/16 19:30 - Physical Exam Constitutional: cachectic Eyes: anicteric sclera Ears, Nose, Mouth, Throat: dry mucous membranes Cardiovascular: regular rate and rhythym, edema Respiratory: no respiratory distress Gastrointestinal: No distension Genitourinary: no bladder fullness Skin: warm Musculoskeletal: No asymmetric calves Neurologic: AAOx3 Psychiatric: depressed, flat affect Lymph, Heme, Immunologic: no cervical LAD ICD10 Worksheet Patient Problems: Problems Problem Status Onset Palliative care encounter Acute Weakness Acute Abdominal pain Acute Chest pain Acute Coronary artery disease Acute History of coronary artery disease Acute Pacemaker Acute Post PTCA Acute
[2016-10-13] MEDS: ACETAMINOPHEN 325 MG TAB PO PRN ×2 (15:54→19:48)
[2016-10-14] MEDS: LEVOTHYROXINE 75 MCG TAB PO SCH (05:17)
[2016-10-14 08:07] VITALS: BP 139/88; PULSE 75; RESP 16; TEMP 98; O2SAT 98
[2016-10-14] MEDS: FUROSEMIDE 40 MG TAB PO SCH (08:38)
[2016-10-14] MEDS: LISINOPRIL 2.5 MG TAB PO SCH (08:39)
[2016-10-14] MEDS: APIXABAN 5 MG TAB PO SCH (08:39)
[2016-10-14] MEDS: CARBIDOPA/LEVODOPA 25 MG/100 MG TAB PO SCH (08:44)
[2016-10-14] MEDS: (Vortioxetine Hydrobromide [Trintellix] 20 MG) PO SCH (08:44)
--- NOTE | 2016-10-14 11:42 | PDIAF ---
- Diagnosis Diagnosis: parkinsons Code Status: Do Not Resuscitate - Medication Management Discharge Medications: Medications to Continue on Transfer Acetaminophen [Tylenol ES 500 mg (*)] 500 mg PO Q6 PRN 10/07/16 [Last Taken Unknown] Sennosides [Senna Lax] 8.6 mg PO PRN PRN 10/07/16 [Last Taken Unknown] Apixaban [Eliquis] 5 mg PO BID #60 tab 10/14/16 [Last Taken Unknown] Carbidopa/Levodopa 25/100Mg [Sinemet 25/100 MG (*)] 4 tab PO TID #120 tab [Last Taken Unknown] Docusate Sodium [Stool Softener] 50 mg PO TID PRN #90 capsule 10/14/16 [Last Taken Unknown] Furosemide [Lasix 40 MG (*)] 40 mg PO BID@0900,1500 #60 tab 10/14/16 [Last Taken Unknown] LORazepam [Ativan (*)] 0.5 - 1 mg PO Q8 PRN #60 tab 10/14/16 [Last Taken Unknown ] Levothyroxine [Synthroid 75 mcg (*)] 75 mcg PO DAILY06 #30 tab 10/14/16 [Last Taken Unknown] Lisinopril [Zestril 2.5 mg (*)] 2.5 mg PO DAILY #30 tab 10/14/16 [Last Taken Unknown] Methylphenidate HCl [Ritalin 5mg (*)] 5 mg PO DAILY #30 tab 10/14/16 [Last Taken Unknown] Ondansetron Odt [Zofran Odt 4 mg (*)] 4 mg PO Q4HRS PRN #30 tab 10/14/16 [Last Taken Unknown] Vortioxetine Hydrobromide [Trintellix] 10 mg PO DAILY #60 tablet 10/14/16 [Last Taken Unknown] Discharge Medications: Refer to the Discharge Home Medication list for PRN reason. - Orders Services needed: Home Care, Registered Nurse Home Care Face to Face: I certify that this patient was under my care and that I had the required [id number] encounter meeting the encounter requirements on the discharge day. My findings support the fact that the patient is homebound as defined in CMS Chapter 7 Medicare Benefits Manual 30.1.1, The condition of the patient is such that there exists a normal inability to leave home and consequently, leaving home would require a considerable and taxing effort. Diet Recommendation: no restrictions on diet Diet Texture: Regular Texture Diet Additional: hospice eval and treat - Follow Up Care Current Providers and Referrals: Patient,NotPresent [Unknown] - As per Instructions
--- NOTE | 2016-10-14 12:22 | ASMTCMCOM ---
CM Note CM Note Notes: Discharge Note: Pt will discharge home with [facility], discharge orders and med list faxed to [facility]. Transport home @ 1330 with [facility], arranged by [facility]. PCS form completed. ISRAEL Roberts to call report. Date Signed: 10/14/2016 12:21 PM Electronically Signed By:Sommer Walls
--- NOTE | 2016-10-14 18:08 | GDS ---
[f rep st] DISCHARGE SUMMARY DISCHARGE DIAGNOSES: Include: 1. Severe Parkinson's. 2. Severe depression. 3. Coronary artery disease. 4. Acute on chronic systolic heart failure. 5. Sick sinus syndrome, status post pacemaker placement. 6. Prostate cancer. 7. Hyperlipidemia. 8. Hypertension. 9. Obstructive sleep apnea. HISTORY OF PRESENT ILLNESS: This is an 81-year-old male with advanced Parkinson's as well as advanc ed heart failure, who presents with complaints of progressive weakness. For details of patient's in itial presentation, please see the history and physical dated 10/07/2016. CONSULTATIVE SERVICES: Include Palliative Care. PROCEDURES: None. HOSPITAL COURSE: By issue: 1. Progressive weakness. The patient was felt to have advancing multiple medical comorbidities, le ading to a very poor quality of life. The patient wishes to not escalate care but instead be discha rged home with Palliative Care for symptom management and end-of-life support. The patient was cont inued on medical management for his heart failure and Parkinson's during this hospital stay, and eddie l be discharged with home hospice/palliative care ongoing. 2. Major depressive disorder. The patient was initiated on Ritalin to assist in mood enhancement d uring this stay. He will be continued on this and his outpatient psychiatric medications without ch so. 3. Parkinson disease. Patient was continued on his Sinemet dosing. Was seen by PT, OT during this stay and again, will be discharged with palliative care/hospice. MEDICATIONS AT THE TIME OF DISPOSITION: Please reference med rec printed on 10/14/2016. PENDING STUDIES: At the time of this dictation, are none. FOLLOWUP APPOINTMENTS: Include with home hospice for ongoing management of symptom control and goal s of care. I spent greater than 30 minutes in the planning and coordination of this discharge. /[id number]/MODL
== END 2016-10-14 14:04 | disposition hospice, home (50) | DRG 640 ==
LOC: EDUNIT# → F1N 22:32
PROVIDERS: ADMIT Internal Medicine; ATTEND Internal Medicine
DX: R62.7 Adult failure to thrive (principal); F32.9 Major depressive disorder, single episode, unspecified; I11.0 Hypertensive heart disease with heart failure; I50.23 Acute on chronic systolic (congestive) heart failure; G20 Parkinson's disease; I25.10 Atherosclerotic heart disease of native coronary artery without angina pectoris; I48.0 Paroxysmal atrial fibrillation; G47.33 Obstructive sleep apnea (adult) (pediatric); E03.9 Hypothyroidism, unspecified; Z95.5 Presence of coronary angioplasty implant and graft; Z87.891 Personal history of nicotine dependence; Z66 Do not resuscitate; Z51.5 Encounter for palliative care; Z85.46 Personal history of malignant neoplasm of prostate; Z95.0 Presence of cardiac pacemaker
CPT/HCPCS: G0480; J1940